=== PATIENT | male | born 1970 | race Two or more races ===

== ENCOUNTER 2023-05-22 08:05 | Inpatient (IN) | payer OTHER ==
[~2023-05-22] VITALS: Ht 182.9 cm; Wt 95.3 kg
[2023-05-22] MEDS ORDERED: METHADOSE40 MG PO (08:34)
[2023-05-22] MEDS ORDERED: levoFLOXacin IN DEXTROSE 5 % 500MG/100ML PIGGYBAG IV ONE (09:15)
[2023-05-22] MEDS ORDERED: 0.9 % SODIUM CHLORIDE 1,000 ML IV SCH ×2 (09:15→17:30)
[2023-05-22 09:43] LABS: MEAN CELL VOLUME 84.5 fL (80.0-100.00); MEAN CORPUSCULAR HEMOGLOBIN 28.4 pg (27.00-32.0); MEAN CORPUSCULAR HGB CONC 33.6 g/dl (32.0-36.0); RED BLOOD COUNT 3.19 M/uL (4.00-6.00); RED CELL DISTRIBUTION WIDTH 15.8 % (11.5-14.5)
[2023-05-22 09:44] LABS: PLATELET COUNT 94 K/uL (150-450)
[2023-05-22 09:48] LABS: ERYTHROCYTE SEDIMENTATION RATE > 130 mm/hr
[2023-05-22 10:28] LABS: ALBUMIN 1.6 gm/dL (3.4-5.0); BILIRUBIN TOTAL 0.7 mg/dL (0.3-1.2); BILIRUBIN,CONJUGATED 0.43 mg/dL (0.0-0.2); BILIRUBIN,UNCONJUGATED 0.27 mg/dL (0.0-0.6); CALCIUM 7.5 mg/dL (8.5-10.1); CREATININE SERUM 1.55 mg/dL (0.70-1.30); GFR 47.51; GLOBULINA 6.5 G/DL (2.4-3.5); POTASSIUM 3.87 mEq/L (3.5-5.1); TOTAL PROTEIN 8.1 gm/dL (6.4-8.2)
[2023-05-22 10:35] LABS: C-REACTIVE PROTEIN 2.09 MG/DL (0.00-0.29)
[2023-05-22] MEDS ORDERED: VANCOMYCIN HCL 500 MG VIAL IU SCH (17:41)
[2023-05-22] MEDS ORDERED: MEROPENEM 500 MG/VIAL VIAL IV SCH (17:42)
[2023-05-22] MEDS ORDERED: ONDANSETRON HCL 4 MG in 0.9 % SODIUM CHLORIDE 50 ML IV PRN (17:45)
[2023-05-22] MEDS ORDERED: ACETAMINOPHEN 500 MG GEL..CAP PO PRN (17:45)
[2023-05-22 19:09] LABS: INR 1.31; PARTIAL THROMBOPLASTIN TIME 37.3 SECONDS (22.0-34.0); PROTHROMBIN TIME 13.5 SECONDS (9.0-11.5)
[2023-05-22 20:08] LABS: PH,URINE 5.5 (5.0-8.0); URINE APPEARANCE Clear; URINE BILIRRUBIN Negative (NEGATIVE); URINE BLOOD Large; URINE COLOR Dark Yellow; URINE GLUCOSE Negative (NEGATIVE); URINE LEUKOCYTE Small; URINE NITRATE Negative; URINE PROTEIN Trace (NEGATIVE)
[2023-05-22 20:11] LABS: URINE BACTERIA 57.9 uL (0.0-1933); URINE EPITHELIAL CELLS 5.4 uL (0.0-38.8); URINE RBC 160.5 uL (0.0-20.8); URINE WBC 44.3 uL (0.0-23.2)
[2023-05-23 07:12] LABS: MAGNESIUM 2.1 mg/dL (1.8-2.4); PHOSPHOROUS 4.1 mg/dL (2.5-4.9)
[2023-05-23] MEDS ORDERED: LACTOBACILLUS ACIDOPHILUS 1 CAP CAP PO SCH (09:00)
[2023-05-23] MEDS ORDERED: PANTOPRAZOLE SODIUM 40 MG/VIAL VIAL IV SCH (09:00)
[2023-05-23] MEDS ORDERED: ENOXAPARIN SODIUM 30 MG/0.3 ML SYRINGE SUBCUTANEO SCH (09:00)
[2023-05-23] MEDS ORDERED: GABAPENTIN 800 MG TABLET PO SCH (09:00)
[2023-05-23] MEDS ORDERED: PATIENTS OWN MEDICATION (MEDICAMENTO EN PHA) PO SCH (15:09)
[2023-05-23] MEDS ORDERED: VANCOMYCIN HCL 500 MG VIAL IV SCH ×2 (21:00)
[2023-05-23] MEDS ORDERED: VANCOMYCIN HCL 5 MG/ML REDILUIDO IV SCH (21:00)
[2023-05-24 05:29] LABS: HEMATOCRIT 24.2 % (39.0-48.0); MEAN CELL VOLUME 86.5 fL (80.0-100.00); MEAN CORPUSCULAR HGB CONC 33.7 g/dl (32.0-36.0); RED CELL DISTRIBUTION WIDTH 15.7 % (11.5-14.5)
[2023-05-24 05:33] LABS: MAGNESIUM 2.2 mg/dL (1.8-2.4); PHOSPHOROUS 4.6 mg/dL (2.5-4.9)
[2023-05-24 05:34] LABS: C-REACTIVE PROTEIN 1.39 MG/DL (0.00-0.29)
[2023-05-24 05:37] LABS: ALBUMIN 1.4 gm/dL (3.4-5.0); BILIRUBIN TOTAL 0.67 mg/dL (0.3-1.2); CALCIUM 7.5 mg/dL (8.5-10.1); CREATININE SERUM 1.53 mg/dL (0.70-1.30); GFR 48.22; GLOBULINA 5.4 G/DL (2.4-3.5); POTASSIUM 3.93 mEq/L (3.5-5.1); TOTAL PROTEIN 6.8 gm/dL (6.4-8.2)
[2023-05-24 05:43] LABS: HEMOGLOBIN 8.2 g/dL (13-16.00); MEAN CORPUSCULAR HEMOGLOBIN 29.2 pg (27.00-32.0); PLATELET COUNT 74 K/uL (150-450)
[2023-05-24] MEDS ORDERED: METHADONE PO SCH (09:00)
[2023-05-25 07:24] LABS: MEAN CELL VOLUME 86.2 fL (80.0-100.00); MEAN CORPUSCULAR HGB CONC 33.7 g/dl (32.0-36.0); RED BLOOD COUNT 2.63 M/uL (4.00-6.00); RED CELL DISTRIBUTION WIDTH 15.5 % (11.5-14.5)
[2023-05-25 08:29] LABS: MEAN CORPUSCULAR HEMOGLOBIN 28.8 pg (27.00-32.0)
[2023-05-25 08:30] LABS: HEMATOCRIT 22.6 % (39.0-48.0); HEMOGLOBIN 7.6 g/dL (13-16.00); PLATELET COUNT 70 K/uL (150-450)
[2023-05-26 02:48] LABS: HEMATOCRIT 28.3 % (39.0-48.0); MEAN CELL VOLUME 85.6 fL (80.0-100.00); RED BLOOD COUNT 3.31 M/uL (4.00-6.00); RED CELL DISTRIBUTION WIDTH 15.6 % (11.5-14.5)
[2023-05-26 02:56] LABS: MEAN CORPUSCULAR HEMOGLOBIN 28.3 pg (27.00-32.0)
[2023-05-26 02:57] LABS: PLATELET COUNT 79 K/uL (150-450)
[2023-05-26 02:58] LABS: HEMOGLOBIN 9.4 g/dL (13-16.00)
[2023-05-26] MEDS ORDERED: VITAMIN B COMPLEX 1 EACH PO SCH (18:00)
[2023-05-27] MEDS ORDERED: PANTOPRAZOLE SODIUM 40 MG TABLET.DR PO SCH (09:00)
[2023-05-27] MEDS ORDERED: CIPROFLOXACIN IN 5 % DEXTROSE 400 MG/200 ML PIGGYBAG IV SCH (21:00)
[2023-05-28 05:09] LABS: HEMATOCRIT 25.7 % (39.0-48.0); MEAN CORPUSCULAR HGB CONC 33.7 g/dl (32.0-36.0); RED BLOOD COUNT 3.03 M/uL (4.00-6.00); RED CELL DISTRIBUTION WIDTH 15.7 % (11.5-14.5)
[2023-05-28 05:16] LABS: MEAN CORPUSCULAR HEMOGLOBIN 28.7 pg (27.00-32.0)
[2023-05-28 05:17] LABS: PLATELET COUNT 58 K/uL (150-450)
[2023-05-28 05:25] LABS: HEMOGLOBIN 8.7 g/dL (13-16.00)
[2023-05-28 05:36] LABS: ALBUMIN 1.4 gm/dL (3.4-5.0); BILIRUBIN TOTAL 0.7 mg/dL (0.3-1.2); CALCIUM 7.4 mg/dL (8.5-10.1); CREATININE SERUM 1.47 mg/dL (0.70-1.30); GFR 50.5; GLOBULINA 5.3 G/DL (2.4-3.5); MAGNESIUM 1.9 mg/dL (1.8-2.4); PHOSPHOROUS 3.7 mg/dL (2.5-4.9); POTASSIUM 4.02 mEq/L (3.5-5.1); TOTAL PROTEIN 6.7 gm/dL (6.4-8.2)
[2023-05-28 05:44] LABS: C-REACTIVE PROTEIN 0.52 MG/DL (0.00-0.29)
[2023-05-28 12:50] LABS: PLATELET ESTIMATE DECREASED (NORMAL)
[2023-05-30 16:07] LABS: hav igm Negative (Negative); hcv Reactive (Non Reactive); hep b c Negative (Negative)
[2023-05-30] MEDS ORDERED: VANCOMYCIN HCL 5 MG/ML REDILUIDO IV SCH (17:00)
[2023-06-01] MEDS ORDERED: ACETAMINOPHEN 500 MG GEL..CAP PO PRN (02:30)
[2023-06-01 07:33] LABS: ALBUMIN 1.5 gm/dL (3.4-5.0); BILIRUBIN TOTAL 0.89 mg/dL (0.3-1.2); CALCIUM 7.5 mg/dL (8.5-10.1); CREATININE SERUM 1.49 mg/dL (0.70-1.30); GFR 49.72; GLOBULINA 5.5 G/DL (2.4-3.5); MAGNESIUM 1.9 mg/dL (1.8-2.4); PHOSPHOROUS 3.9 mg/dL (2.5-4.9); POTASSIUM 3.96 mEq/L (3.5-5.1)
[2023-06-01 07:47] LABS: HEMATOCRIT 25.8 % (39.0-48.0); MEAN CELL VOLUME 85.7 fL (80.0-100.00); MEAN CORPUSCULAR HGB CONC 33.7 g/dl (32.0-36.0); RED BLOOD COUNT 3.01 M/uL (4.00-6.00); RED CELL DISTRIBUTION WIDTH 15.6 % (11.5-14.5)
[2023-06-01 07:56] LABS: C-REACTIVE PROTEIN 0.43 MG/DL (0.00-0.29)
[2023-06-01 07:59] LABS: MEAN CORPUSCULAR HEMOGLOBIN 28.9 pg (27.00-32.0)
[2023-06-01 08:00] LABS: HEMOGLOBIN 8.7 g/dL (13-16.00); PLATELET COUNT 50 K/uL (150-450)
[2023-06-02] MEDS ORDERED: CLONAZEPAM 1 MG TABLET PO SCH (21:00)
[2023-06-03] MEDS ORDERED: VANCOMYCIN HCL 1,000 MG VIAL IV SCH (17:00)
[2023-06-04 12:01] LABS: HEMATOCRIT 27.3 % (39.0-48.0); HEMOGLOBIN 9.3 g/dL (13-16.00); MEAN CELL VOLUME 85.1 fL (80.0-100.00); MEAN CORPUSCULAR HEMOGLOBIN 28.9 pg (27.00-32.0); MEAN CORPUSCULAR HGB CONC 33.9 g/dl (32.0-36.0); RED CELL DISTRIBUTION WIDTH 16.3 % (11.5-14.5)
[2023-06-04 12:22] LABS: PLATELET COUNT 42 K/uL (150-450)
[2023-06-04 12:39] LABS: ALBUMIN 1.8 gm/dL (3.4-5.0); BILIRUBIN TOTAL 0.98 mg/dL (0.3-1.2); CALCIUM 7.6 mg/dL (8.5-10.1); CREATININE SERUM 1.48 mg/dL (0.70-1.30); GFR 50.11; GLOBULINA 5.9 G/DL (2.4-3.5); MAGNESIUM 1.8 mg/dL (1.8-2.4); PHOSPHOROUS 3.5 mg/dL (2.5-4.9); POTASSIUM 3.75 mEq/L (3.5-5.1); TOTAL PROTEIN 7.7 gm/dL (6.4-8.2)
[2023-06-04 12:43] LABS: C-REACTIVE PROTEIN 0.52 MG/DL (0.00-0.29)
[2023-06-07] MEDS ORDERED: CHLORHEXIDINE GLUCONATE 120 ML BOTTLE TOP SCH (13:00)
[2023-06-07 18:07] LABS: log 10 5.149 (.)
== END 2023-06-07 16:11 | disposition home or self-care (01) | DRG 592 ==
LOC: ER 08:06 → MEDI 18:29 → SEC-K 18:29 → MEDI 21:07
PROVIDERS: General Practice; Internal Medicine; Internal Medicine Infectious Disease; ADMIT Internal Medicine; ATTEND Internal Medicine
PROC: B54DZZZ Ultrasonography of Bilateral Lower Extremity Veins (ICD-10-PCS; principal; 2023-05-22)
PROC: 30233N1 Transfusion of Nonautologous Red Blood Cells into Peripheral Vein, Percutaneous Approach (ICD-10-PCS; 2023-05-25)
PROC: BW40ZZZ Ultrasonography of Abdomen (ICD-10-PCS; 2023-05-26)
PROC: B24BYZZ Ultrasonography of Heart with Aorta using Other Contrast (ICD-10-PCS; 2023-05-26)
DX: L97.529 Non-pressure chronic ulcer of other part of left foot with unspecified severity (principal); A41.9 Sepsis, unspecified organism; N18.6 End stage renal disease; D61.818 Other pancytopenia; I83.209 Varicose veins of unspecified lower extremity with both ulcer of unspecified site and inflammation; L97.519 Non-pressure chronic ulcer of other part of right foot with unspecified severity; N18.9 Chronic kidney disease, unspecified; D64.9 Anemia, unspecified; K70.31 Alcoholic cirrhosis of liver with ascites; D73.2 Chronic congestive splenomegaly; B19.20 Unspecified viral hepatitis C without hepatic coma; I73.9 Peripheral vascular disease, unspecified; D75.9 Disease of blood and blood-forming organs, unspecified; F19.90 Other psychoactive substance use, unspecified, uncomplicated; D69.6 Thrombocytopenia, unspecified